=== PATIENT | male | born 1965 | race Asian ===

== ENCOUNTER 2016-06-05 20:03 | Emergency (ER) | payer OTHER ==
[~2016-06-05] VITALS: Ht 167.6 cm; Wt 70.9 kg
[~2016-06-05 20:03] MED LIST: ASPI81 PO; LORA-703 PO; LORA1TAB3 PO; PRAV20TA PO; SITA100 PO
[2016-06-05] MEDS ORDERED: SUCR1TAB PO (20:30)
[2016-06-05 20:36] LABS: GLUCOSE,POINT OF CARE 132 MG/DL (70-110)
[2016-06-05 20:48] LABS: BASOPHILS # (AUTO) 0.13 K/uL (0.00-0.20); BASOPHILS % (AUTO) 1.3 % (0.0-2.0); EOSINOPHILS # (AUTO) 0.18 K/uL (0.00-0.70); EOSINOPHILS % (AUTO) 1.83 % (1.0-6.0); HEMATOCRIT 48.4 % (41-53); HEMOGLOBIN 16.2 g/dL (13.5-17.5); LYMPHOCYTES # (AUTO) 2.1 K/uL (1.0-4.8); LYMPHOCYTES % (AUTO) 21.4 % (22.0-44.0); MEAN CORPUSCULAR HEMOGLOBIN 27.1 pg (26.0-34.0); MEAN CORPUSCULAR HGB CONC 33.4 G/dL (31.0-37.0); MEAN CORPUSCULAR VOLUME 81 fL (80-100); MONOCYTES # (AUTO) 0.7 K/uL (0.1-1.0); MONOCYTES % (AUTO) 6.6 % (2.0-9.0); NEUTROPHILS # (AUTO) 6.8 K/uL (1.8-7.7); PLATELET COUNT (AUTO) 192 K/uL (150-450); RED BLOOD CELL COUNT(AUTO) 5.97 MIL/uL (4.50-5.90); WHITE BLOOD COUNT (AUTO) 9.9 K/uL (4.5-11.0)
[2016-06-05 20:56] LABS: ANION GAP 9 mmol/L (8-16); CALCIUM, TOTAL 9.4 mg/dL (8.8-10.5); CARBON DIOXIDE 29 mmol/L (22-29); CHLORIDE 102 mmol/L (98-107); CREATININE 1.26 mg/dL (0.60-1.30); GLOMERULAR FILTR. RATE CALC > 60 mL/min (>60); POTASSIUM 4.1 mmol/L (3.5-5.1); SODIUM SERUM 140 mmol/L (136-145); UREA NITROGEN, BLOOD 15 mg/dL (7-18)
[2016-06-05 21:03] LABS: ALANINE AMINOTRANSFERASE 62 U/L (12-78); ALBUMIN 4.4 g/dL (3.4-5.0); ASPARTATE AMINOTRANSFERASE 35 U/L (15-37); BILIRUBIN,TOTAL 0.5 mg/dL (0.1-1.0); TOTAL PROTEIN, SERUM 8.4 g/dL (6.4-8.2)
[2016-06-05 21:30] LABS: ADD UA MICROSCOPIC NO; APPEARANCE,URINE CLEAR (CLEAR); GLUCOSE, URINE (UA) NEGATIVE (NEGATIVE); KETONES,URINE NEGATIVE (NEGATIVE); LEUKOCYTE ESTERASE ,URINE NEGATIVE (NEGATIVE); OCCULT BLOOD,URINE NEGATIVE (NEGATIVE); PROTEIN,URINE NEGATIVE (NEGATIVE)
[2016-06-06] MEDS ORDERED: SODIUM CHLORIDE 0.9% 1,000 ML IV ONE (00:15)
[2016-06-06] MEDS ORDERED: ONDANSETRON HCL 4 MG/2 ML VIAL IVP ONE (00:15)
[2016-06-06 00:51] VITALS: BP 138/87
[2016-06-06] MEDS ORDERED: DONNATAL/LIDOCAINE/MAALOX 55 ML BOTTLE PO ONE (01:00)
== END 2016-06-06 01:51 | disposition home or self-care (01) ==
LOC: EMS 20:06
DX: R10.84 Generalized abdominal pain (principal); E11.9 Type 2 diabetes mellitus without complications; I10 Essential (primary) hypertension; K21.9 Gastro-esophageal reflux disease without esophagitis; F17.210 Nicotine dependence, cigarettes, uncomplicated; Z88.8 Allergy status to other drugs, medicaments and biological substances; Z79.82 Long term (current) use of aspirin
CPT/HCPCS: 36415; 80053; 81003; 82962; 83690; 84484; 85025; 93005; 96361; 96374; 99285; J2405; J7030; Z7610

== ENCOUNTER 2016-07-10 16:01 | Emergency (ER) | payer OTHER ==
[~2016-07-10] VITALS: Ht 167.6 cm; Wt 73.6 kg
[~2016-07-10 16:01] MED LIST changes: -LORA-703 PO; +LORA10TA47 PO; +SUCR1TAB PO
[2016-07-10 17:17] LABS: GLUCOSE,POINT OF CARE 141 MG/DL (70-110)
[2016-07-10] MEDS ORDERED: KETOROLAC TROMETHAMINE 60 MG/2 ML VIAL IM ONE (19:30)
[2016-07-10] MEDS ORDERED: METHOCARBAMOL 500 MG TABLET PO ONE (19:30)
[2016-07-10 23:30] VITALS: BP 126/85
[2016-07-10] MEDS ORDERED: TraMADol HCL 50 MG TABLET PO ONE (23:30)
== END 2016-07-10 23:47 | disposition home or self-care (01) ==
LOC: EMS 17:16
DX: S13.4XXA Sprain of ligaments of cervical spine, initial encounter (principal); S00.83XA Contusion of other part of head, initial encounter; E11.9 Type 2 diabetes mellitus without complications; K21.9 Gastro-esophageal reflux disease without esophagitis; I10 Essential (primary) hypertension; F17.210 Nicotine dependence, cigarettes, uncomplicated; Z88.8 Allergy status to other drugs, medicaments and biological substances; V79.50XA Passenger on bus injured in collision with unspecified motor vehicles in traffic accident, initial encounter; Y93.89 Activity, other specified; Y92.89 Other specified places as the place of occurrence of the external cause; Y99.8 Other external cause status
CPT/HCPCS: 70486; 72125; 82962; 96372; 99284; J1885

== ENCOUNTER 2016-09-28 14:06 | Emergency (ER) | payer OTHER ==
[~2016-09-28] VITALS: Ht 165.1 cm; Wt 68.1 kg
[~2016-09-28 14:06] MED LIST changes: +LORA-703 PO; -LORA10TA47 PO
[2016-09-28] MEDS ORDERED: [UNRECOGNIZED DRUG - CODE] PO (14:13)
[2016-09-28 15:27] LABS: BASOPHILS % (AUTO) 1.4 % (0.0-2.0); EOSINOPHILS % (AUTO) 3.6 % (1.0-6.0); HEMATOCRIT 47.2 % (41-53); LYMPHOCYTES # (AUTO) 2.1 K/uL (1.0-4.8); LYMPHOCYTES % (AUTO) 22.7 % (22.0-44.0); MEAN CORPUSCULAR HEMOGLOBIN 27.5 pg (26.0-34.0); MEAN CORPUSCULAR HGB CONC 33.9 G/dL (31.0-37.0); MEAN CORPUSCULAR VOLUME 81 fL (80-100); MONOCYTES # (AUTO) 0.7 K/uL (0.1-1.0); MONOCYTES % (AUTO) 7.8 % (2.0-9.0); NEUTROPHILS # (AUTO) 5.8 K/uL (1.8-7.7); NEUTROPHILS % (AUTO) 64.5 % (40.0-70.0); PLATELET COUNT (AUTO) 178 K/uL (150-450); RED BLOOD CELL COUNT(AUTO) 5.82 MIL/uL (4.50-5.90); RED CELL DISTRIBUTION WIDTH 14.2 % (11.5-14.5)
[2016-09-28 15:39] LABS: CALCIUM, TOTAL 8.5 mg/dL (8.8-10.5); CREATININE 1.62 mg/dL (0.60-1.30); POTASSIUM 4.3 mmol/L (3.5-5.1)
[2016-09-28 16:03] VITALS: BP 134/93
== END 2016-09-28 16:24 | disposition home or self-care (01) ==
LOC: EMS 14:07
DX: R42 Dizziness and giddiness (principal); R06.02 Shortness of breath; E11.9 Type 2 diabetes mellitus without complications; K21.9 Gastro-esophageal reflux disease without esophagitis; I10 Essential (primary) hypertension; F17.210 Nicotine dependence, cigarettes, uncomplicated; Z79.82 Long term (current) use of aspirin; Z88.6 Allergy status to analgesic agent; Z88.8 Allergy status to other drugs, medicaments and biological substances
CPT/HCPCS: 82962; 93005; 99285

== ENCOUNTER 2016-12-31 10:08 | Emergency (ER) | payer OTHER ==
[~2016-12-31] VITALS: Ht 165.1 cm; Wt 74.1 kg
[~2016-12-31 10:08] MED LIST changes: +[UNRECOGNIZED DRUG - CODE] PO
[2016-12-31 10:42] LABS: GLUCOSE,POINT OF CARE 117 MG/DL (70-110)
[2016-12-31 11:14] LABS: BASOPHILS % (AUTO) 0.6 % (0.0-2.0); EOSINOPHILS % (AUTO) 2.6 % (1.0-6.0); HEMATOCRIT 48.3 % (41-53); HEMOGLOBIN 16.4 g/dL (13.5-17.5); LYMPHOCYTES # (AUTO) 1.7 K/uL (1.0-4.8); LYMPHOCYTES % (AUTO) 19.7 % (22.0-44.0); MEAN CORPUSCULAR HEMOGLOBIN 27.8 pg (26.0-34.0); MEAN CORPUSCULAR VOLUME 82 fL (80-100); MONOCYTES # (AUTO) 0.6 K/uL (0.1-1.0); MONOCYTES % (AUTO) 6.8 % (2.0-9.0); NEUTROPHILS # (AUTO) 5.9 K/uL (1.8-7.7); NEUTROPHILS % (AUTO) 70.3 % (40.0-70.0); PLATELET COUNT (AUTO) 150 K/uL (150-450); RED BLOOD CELL COUNT(AUTO) 5.91 MIL/uL (4.50-5.90); WHITE BLOOD COUNT (AUTO) 8.5 K/uL (4.5-11.0)
[2016-12-31 11:29] LABS: CREATININE 1.47 mg/dL (0.60-1.30); POTASSIUM 4.3 mmol/L (3.5-5.1)
[2016-12-31] MEDS ORDERED: SODIUM CHLORIDE 0.9% 1,000 ML IV ONE (11:30)
[2016-12-31] MEDS ORDERED: ONDANSETRON HCL 4 MG/2 ML VIAL IVP ONE (11:30)
[2016-12-31 11:35] LABS: ALBUMIN 4.1 g/dL (3.4-5.0); BILIRUBIN,TOTAL 0.4 mg/dL (0.1-1.0); TOTAL PROTEIN, SERUM 8.2 g/dL (6.4-8.2)
[2016-12-31 12:03] VITALS: BP 115/76
== END 2016-12-31 12:40 | disposition home or self-care (01) ==
LOC: EMS 10:09
DX: R19.7 Diarrhea, unspecified (principal); R11.2 Nausea with vomiting, unspecified; I10 Essential (primary) hypertension; K21.9 Gastro-esophageal reflux disease without esophagitis; E11.9 Type 2 diabetes mellitus without complications; F17.210 Nicotine dependence, cigarettes, uncomplicated; Z79.82 Long term (current) use of aspirin
CPT/HCPCS: 80053; 82962; 83690; 85025; 96361; 96374; 99284; J2405; J7030

== ENCOUNTER 2017-01-24 12:03 | Emergency (ER) | payer OTHER ==
[~2017-01-24] VITALS: Ht 167.6 cm; Wt 73.6 kg
[~2017-01-24 12:03] MED LIST changes: -[UNRECOGNIZED DRUG - CODE] PO
[2017-01-24 12:38] VITALS: BP 140/101
[2017-01-24 12:50] LABS: GLUCOSE,POINT OF CARE 156 MG/DL (70-110)
== END 2017-01-24 13:18 | disposition home or self-care (01) ==
LOC: EMS 12:05
DX: J06.9 Acute upper respiratory infection, unspecified (principal); E11.9 Type 2 diabetes mellitus without complications; I10 Essential (primary) hypertension; K21.9 Gastro-esophageal reflux disease without esophagitis; Z88.6 Allergy status to analgesic agent; Z88.8 Allergy status to other drugs, medicaments and biological substances; Z79.82 Long term (current) use of aspirin
CPT/HCPCS: 82962; 99283

== ENCOUNTER 2017-10-22 12:05 | Emergency (ER) | payer OTHER ==
[~2017-10-22] VITALS: Ht 167.6 cm; Wt 75.0 kg
[2017-10-22 12:19] LABS: GLUCOSE,POINT OF CARE 144 MG/DL (70-110)
[2017-10-22] MEDS ORDERED: HydrOXYzine PAMOATE 25 MG CAPSULE PO ONE (13:00)
[2017-10-22 13:30] VITALS: BP 141/84
== END 2017-10-22 13:47 | disposition home or self-care (01) ==
LOC: EMS 12:05
DX: T78.40XA Allergy, unspecified, initial encounter (principal); I10 Essential (primary) hypertension; E11.9 Type 2 diabetes mellitus without complications; K21.9 Gastro-esophageal reflux disease without esophagitis; Z88.6 Allergy status to analgesic agent; Z88.8 Allergy status to other drugs, medicaments and biological substances
CPT/HCPCS: 99283

== ENCOUNTER 2017-11-12 09:08 | Emergency (ER) | payer OTHER ==
[~2017-11-12] VITALS: Ht 165.1 cm; Wt 78.2 kg
[2017-11-12 09:37] VITALS: BP 111/68
[2017-11-12] MEDS ORDERED: IBUPROFEN 600 MG TABLET PO ONE (10:15)
[2017-11-12 14:55] LABS: GLUCOSE,POINT OF CARE 187 MG/DL (70-110)
== END 2017-11-12 10:27 | disposition home or self-care (01) ==
LOC: EMS 09:08
DX: S16.1XXA Strain of muscle, fascia and tendon at neck level, initial encounter (principal); S39.012A Strain of muscle, fascia and tendon of lower back, initial encounter; I10 Essential (primary) hypertension; E11.9 Type 2 diabetes mellitus without complications; K21.9 Gastro-esophageal reflux disease without esophagitis; F41.9 Anxiety disorder, unspecified; Z88.6 Allergy status to analgesic agent; Z88.8 Allergy status to other drugs, medicaments and biological substances; Z79.82 Long term (current) use of aspirin; Z79.899 Other long term (current) drug therapy; V49.50XA Passenger injured in collision with unspecified motor vehicles in traffic accident, initial encounter; Y93.89 Activity, other specified; Y92.89 Other specified places as the place of occurrence of the external cause; Y99.8 Other external cause status
CPT/HCPCS: 99283

== ENCOUNTER 2018-03-14 11:40 | Emergency (ER) | payer OTHER ==
[~2018-03-14] VITALS: Ht 167.6 cm; Wt 73.6 kg
[2018-03-14] MEDS ORDERED: HydrOXYzine HCL 25 MG TABLET PO ONE (12:45)
[2018-03-14] MEDS ORDERED: PredniSONE 20 MG TABLET PO ONE (13:15)
[2018-03-14 13:35] VITALS: BP 120/86
== END 2018-03-14 13:44 | disposition home or self-care (01) ==
LOC: EMS 11:42
DX: S80.861A Insect bite (nonvenomous), right lower leg, initial encounter (principal); S80.862A Insect bite (nonvenomous), left lower leg, initial encounter; S40.861A Insect bite (nonvenomous) of right upper arm, initial encounter; S40.862A Insect bite (nonvenomous) of left upper arm, initial encounter; L50.0 Allergic urticaria; E11.9 Type 2 diabetes mellitus without complications; K21.9 Gastro-esophageal reflux disease without esophagitis; I10 Essential (primary) hypertension; F41.9 Anxiety disorder, unspecified; Z88.6 Allergy status to analgesic agent; Z88.8 Allergy status to other drugs, medicaments and biological substances; Z79.82 Long term (current) use of aspirin; W57.XXXA Bitten or stung by nonvenomous insect and other nonvenomous arthropods, initial encounter; Y93.89 Activity, other specified; Y92.89 Other specified places as the place of occurrence of the external cause; Y99.8 Other external cause status
CPT/HCPCS: 82962; 99283; J7512

== ENCOUNTER 2018-07-11 08:07 | Emergency (ER) | payer OTHER ==
[~2018-07-11] VITALS: Ht 165.1 cm; Wt 74.1 kg
[2018-07-11 08:24] LABS: GLUCOSE,POINT OF CARE 266 MG/DL (70-110)
[2018-07-11] MEDS: DIPHENOXYLATE/ATROP 2.5-0.025 MG/5 ML ORAL.SYG LIQUID PO ONE ×2 (09:09→09:12)
[2018-07-11 09:14] LABS: BASOPHILS % (AUTO) 0.9 % (0.0-2.0); EOSINOPHILS % (AUTO) 2.7 % (1.0-6.0); HEMATOCRIT 44.6 % (41-53); HEMOGLOBIN 14.8 g/dL (13.5-17.5); LYMPHOCYTES # (AUTO) 1.2 K/uL (1.0-4.8); LYMPHOCYTES % (AUTO) 15.7 % (22.0-44.0); MEAN CORPUSCULAR HGB CONC 33.3 G/dL (31.0-37.0); MEAN CORPUSCULAR VOLUME 81 fL (80-100); MONOCYTES # (AUTO) 0.5 K/uL (0.1-1.0); NEUTROPHILS # (AUTO) 5.4 K/uL (1.8-7.7); NEUTROPHILS % (AUTO) 73.7 % (40.0-70.0); PLATELET COUNT (AUTO) 162 K/uL (150-450); RED BLOOD CELL COUNT(AUTO) 5.49 MIL/uL (4.50-5.90); RED CELL DISTRIBUTION WIDTH 14.5 % (11.5-14.5)
[2018-07-11 09:28] LABS: APPEARANCE,URINE CLEAR (CLEAR); BILIRUBIN,URINE NEGATIVE (NEGATIVE); GLUCOSE, URINE (UA) 500 mg/dL (NEGATIVE); KETONES,URINE NEGATIVE (NEGATIVE); LEUKOCYTE ESTERASE ,URINE NEGATIVE (NEGATIVE); NITRATE,URINE NEGATIVE (NEGATIVE); OCCULT BLOOD,URINE NEGATIVE (NEGATIVE); PROTEIN,URINE NEGATIVE (NEGATIVE); UROBILINOGEN,URINE 0.2 mg/dL (<=1.0)
[2018-07-11 09:32] LABS: CALCIUM, TOTAL 8.8 mg/dL (8.8-10.5); CREATININE 1.37 mg/dL (0.60-1.30); POTASSIUM 3.7 mmol/L (3.5-5.1)
[2018-07-11 09:45] LABS: ALBUMIN 3.4 g/dL (3.4-5.0); BILIRUBIN,TOTAL 0.5 mg/dL (0.1-1.0); TOTAL PROTEIN, SERUM 6.9 g/dL (6.4-8.2)
[2018-07-11 10:05] LABS: BACTERIA,URINE Rare /HPF (None Seen); RBC,URINE None Seen /HPF (0-2); SQUAMOUS EPITHELIAL CELL,UR Rare /LPF (None Seen); WBC,URINE 0-2 /HPF (0-5)
[2018-07-11 12:47] VITALS: BP 120/72
== END 2018-07-11 12:54 | disposition home or self-care (01) ==
LOC: EMS 08:09
DX: R19.7 Diarrhea, unspecified (principal); K21.9 Gastro-esophageal reflux disease without esophagitis; E11.9 Type 2 diabetes mellitus without complications; I10 Essential (primary) hypertension; F41.9 Anxiety disorder, unspecified; Z88.8 Allergy status to other drugs, medicaments and biological substances; Z88.6 Allergy status to analgesic agent; Z79.82 Long term (current) use of aspirin

== ENCOUNTER 2018-10-28 18:45 | Emergency (ER) | payer OTHER ==
[~2018-10-28] VITALS: Ht 165.1 cm; Wt 74.0 kg
[2018-10-28 18:48] VITALS: BP 141/94
[2018-10-28 19:04] LABS: GLUCOSE,POINT OF CARE 157 MG/DL (70-110)
[2018-10-28 19:33] LABS: APPEARANCE,URINE CLEAR (CLEAR); BILIRUBIN,URINE NEGATIVE (NEGATIVE); GLUCOSE, URINE (UA) NEGATIVE (NEGATIVE); KETONES,URINE NEGATIVE (NEGATIVE); LEUKOCYTE ESTERASE ,URINE NEGATIVE (NEGATIVE); NITRATE,URINE NEGATIVE (NEGATIVE); OCCULT BLOOD,URINE NEGATIVE (NEGATIVE); PROTEIN,URINE NEGATIVE (NEGATIVE); UROBILINOGEN,URINE 0.2 mg/dL (<=1.0)
== END 2018-10-28 21:30 | disposition left against medical advice (07) ==
LOC: EMS 18:46
DX: R42 Dizziness and giddiness (principal); R53.1 Weakness; E11.9 Type 2 diabetes mellitus without complications; K21.9 Gastro-esophageal reflux disease without esophagitis; I10 Essential (primary) hypertension; F41.9 Anxiety disorder, unspecified; Z53.21 Procedure and treatment not carried out due to patient leaving prior to being seen by health care provider

== ENCOUNTER 2019-04-25 12:56 | Emergency (ER) | payer OTHER ==
[~2019-04-25] VITALS: Ht 167.6 cm; Wt 75.0 kg
[~2019-04-25 12:56] MED LIST changes: +LORA-1000 PO; -LORA1TAB3 PO
[2019-04-25 15:21] LABS: GLUCOSE,POINT OF CARE 121 MG/DL (70-110)
[2019-04-25 16:48] LABS: BASOPHILS % (AUTO) 1.4 % (0.0-2.0); EOSINOPHILS % (AUTO) 1.6 % (1.0-6.0); HEMATOCRIT 47.5 % (41-53); HEMOGLOBIN 15.9 g/dL (13.5-17.5); LYMPHOCYTES # (AUTO) 1.6 K/uL (1.0-4.8); LYMPHOCYTES % (AUTO) 17.2 % (22.0-44.0); MEAN CORPUSCULAR HEMOGLOBIN 27.9 pg (26.0-34.0); MEAN CORPUSCULAR HGB CONC 33.5 G/dL (31.0-37.0); MEAN CORPUSCULAR VOLUME 83 fL (80-100); MONOCYTES # (AUTO) 0.8 K/uL (0.1-1.0); MONOCYTES % (AUTO) 8.2 % (2.0-9.0); NEUTROPHILS # (AUTO) 6.6 K/uL (1.8-7.7); NEUTROPHILS % (AUTO) 71.6 % (40.0-70.0); PLATELET COUNT (AUTO) 212 K/uL (150-450); RED BLOOD CELL COUNT(AUTO) 5.71 MIL/uL (4.50-5.90); RED CELL DISTRIBUTION WIDTH 14.4 % (11.5-14.5)
[2019-04-25 16:59] LABS: CALCIUM, TOTAL 8.4 mg/dL (8.8-10.5); CREATININE 1.34 mg/dL (0.60-1.30); POTASSIUM 3.7 mmol/L (3.5-5.1)
[2019-04-25 17:14] LABS: ALBUMIN 3.7 g/dL (3.4-5.0); BILIRUBIN,TOTAL 0.5 mg/dL (0.1-1.0); FREE T4 (FREE THYROXINE) 1.09 ng/dL (0.76-1.46); THYROID STIMULATING HORMONE 1.48 uIU/mL (0.36-3.74); TOTAL PROTEIN, SERUM 7.4 g/dL (6.4-8.2)
[2019-04-25 19:30] VITALS: BP 128/82
== END 2019-04-25 20:15 | disposition home or self-care (01) ==
LOC: EMS 12:58
DX: R00.2 Palpitations (principal); F41.9 Anxiety disorder, unspecified; R20.2 Paresthesia of skin; I12.9 Hypertensive chronic kidney disease with stage 1 through stage 4 chronic kidney disease, or unspecified chronic kidney disease; E11.22 Type 2 diabetes mellitus with diabetic chronic kidney disease; N18.9 Chronic kidney disease, unspecified; K21.9 Gastro-esophageal reflux disease without esophagitis; Z79.82 Long term (current) use of aspirin; Z88.6 Allergy status to analgesic agent; Z88.8 Allergy status to other drugs, medicaments and biological substances
CPT/HCPCS: 84439; 84443; 93005

== ENCOUNTER 2019-06-03 16:43 | Emergency (ER) | payer OTHER ==
[~2019-06-03] VITALS: Ht 165.1 cm; Wt 75.9 kg
[~2019-06-03 16:43] MED LIST changes: +ASPI-728 PO; -ASPI81 PO
[2019-06-03] MEDS ORDERED: SUCRALFATE 1 GM/10 ML SUSPENSION UDCUP PO ONE (17:00)
[2019-06-03] MEDS ORDERED: PB/HYOSCY/ATR/SCOP/LIDO/MAALOX 55 ML BOTTLE PO ONE (17:00)
[2019-06-03 17:46] LABS: GLUCOSE,POINT OF CARE 181 MG/DL (70-110)
[2019-06-03 17:58] VITALS: BP 107/68
== END 2019-06-03 18:43 | disposition home or self-care (01) ==
LOC: EMS 16:46
DX: K21.9 Gastro-esophageal reflux disease without esophagitis (principal); F41.9 Anxiety disorder, unspecified; E11.9 Type 2 diabetes mellitus without complications; I10 Essential (primary) hypertension; Z79.899 Other long term (current) drug therapy; Z88.6 Allergy status to analgesic agent; Z88.8 Allergy status to other drugs, medicaments and biological substances
CPT/HCPCS: 93005

== ENCOUNTER 2019-06-18 07:54 | Emergency (ER) | payer OTHER ==
[~2019-06-18] VITALS: Ht 165.1 cm; Wt 76.4 kg
[2019-06-18 08:16] LABS: GLUCOSE,POINT OF CARE 206 MG/DL (70-110)
[2019-06-18] MEDS ORDERED: ONDANSETRON HCL 4 MG/2 ML VIAL IVP ONE (08:45)
[2019-06-18] MEDS ORDERED: FAMOTIDINE 10 MG/ML 2 ML VIAL IVP ONE (08:45)
[2019-06-18] MEDS ORDERED: SODIUM CHLORIDE 0.9% 1,000 ML IV ONE (08:45)
[2019-06-18] MEDS ORDERED: MAG HYDROX/AL HYDROX/SIMETH 30 ML SUSP UDCUP PO ONE (08:45)
[2019-06-18 09:04] LABS: BASOPHILS % (AUTO) 0.6 % (0.0-2.0); HEMATOCRIT 47.1 % (41-53); HEMOGLOBIN 15.5 g/dL (13.5-17.5); LYMPHOCYTES # (AUTO) 1.6 K/uL (1.0-4.8); LYMPHOCYTES % (AUTO) 19.8 % (22.0-44.0); MEAN CORPUSCULAR HEMOGLOBIN 27.6 pg (26.0-34.0); MEAN CORPUSCULAR HGB CONC 32.8 G/dL (31.0-37.0); MEAN CORPUSCULAR VOLUME 84 fL (80-100); MONOCYTES # (AUTO) 0.7 K/uL (0.1-1.0); MONOCYTES % (AUTO) 8.5 % (2.0-9.0); NEUTROPHILS # (AUTO) 5.2 K/uL (1.8-7.7); NEUTROPHILS % (AUTO) 66.1 % (40.0-70.0); PLATELET COUNT (AUTO) 165 K/uL (150-450); RED CELL DISTRIBUTION WIDTH 14.4 % (11.5-14.5)
[2019-06-18 09:14] LABS: CALCIUM, TOTAL 8.7 mg/dL (8.8-10.5); CREATININE 1.31 mg/dL (0.60-1.30); POTASSIUM 3.5 mmol/L (3.5-5.1)
[2019-06-18 09:21] LABS: ALBUMIN 3.7 g/dL (3.4-5.0); BILIRUBIN,TOTAL 0.7 mg/dL (0.1-1.0); TOTAL PROTEIN, SERUM 7.4 g/dL (6.4-8.2)
[2019-06-18] MEDS ORDERED: IOVERSOL 350 MG/ML 100 ML VIAL ONE (09:34)
[2019-06-18] MEDS ORDERED: SODIUM CHLORIDE 0.9% 100 ML ONE (09:34)
[2019-06-18 10:20] LABS: APPEARANCE,URINE CLEAR (CLEAR); BILIRUBIN,URINE NEGATIVE (NEGATIVE); GLUCOSE, URINE (UA) NEGATIVE (NEGATIVE); KETONES,URINE NEGATIVE (NEGATIVE); LEUKOCYTE ESTERASE ,URINE NEGATIVE (NEGATIVE); NITRATE,URINE NEGATIVE (NEGATIVE); OCCULT BLOOD,URINE NEGATIVE (NEGATIVE); PROTEIN,URINE NEGATIVE (NEGATIVE); UROBILINOGEN,URINE 0.2 mg/dL (<=1.0)
[2019-06-18 10:23] VITALS: BP 110/81
== END 2019-06-18 10:46 | disposition home or self-care (01) ==
LOC: EMS 07:58
DX: R19.7 Diarrhea, unspecified (principal); R10.84 Generalized abdominal pain; E11.9 Type 2 diabetes mellitus without complications; K21.9 Gastro-esophageal reflux disease without esophagitis; I10 Essential (primary) hypertension; F41.9 Anxiety disorder, unspecified; Z79.82 Long term (current) use of aspirin; Z88.6 Allergy status to analgesic agent; Z88.8 Allergy status to other drugs, medicaments and biological substances
CPT/HCPCS: 36415; 74177; 80053; 81003; 82962; 83690; 85025; 96361; 96374; 96375; 99285; J2405; J3490; J7030; J7050; Q9967

== ENCOUNTER 2019-07-09 09:24 | Emergency (ER) | payer OTHER ==
[~2019-07-09] VITALS: Ht 165.1 cm; Wt 76.4 kg
[2019-07-09 12:00] VITALS: BP 135/92
[2019-07-09 12:01] LABS: INFLUENZA TYPE A NEGATIVE FOR TYPE A (NEGATIVE); INFLUENZA TYPE B NEGATIVE FOR TYPE B (NEGATIVE)
== END 2019-07-09 12:20 | disposition home or self-care (01) ==
LOC: EMS 09:25
DX: B34.9 Viral infection, unspecified (principal); F41.9 Anxiety disorder, unspecified; E11.9 Type 2 diabetes mellitus without complications; K21.9 Gastro-esophageal reflux disease without esophagitis; I10 Essential (primary) hypertension; Z88.6 Allergy status to analgesic agent; Z88.8 Allergy status to other drugs, medicaments and biological substances; Z79.82 Long term (current) use of aspirin
CPT/HCPCS: 87804

== ENCOUNTER 2020-06-13 08:13 | Emergency (ER) | payer OTHER ==
[~2020-06-13] VITALS: Ht 162.6 cm; Wt 81.8 kg
[~2020-06-13 08:13] MED LIST changes: +ASPI-1450 PO; -ASPI-728 PO; +LORA-550 PO; -LORA-703 PO
[2020-06-13 08:18] VITALS: BP 117/73
[2020-06-13] MEDS ORDERED: IBUPROFEN 600 MG TABLET PO ONE (08:45)
== END 2020-06-13 08:48 | disposition home or self-care (01) ==
LOC: EMS 08:20
DX: M77.11 Lateral epicondylitis, right elbow (principal); F41.9 Anxiety disorder, unspecified; E11.9 Type 2 diabetes mellitus without complications; K21.9 Gastro-esophageal reflux disease without esophagitis; I10 Essential (primary) hypertension; Z88.6 Allergy status to analgesic agent; Z88.8 Allergy status to other drugs, medicaments and biological substances
CPT/HCPCS: 99282; Z7502; Z7610

== ENCOUNTER 2020-12-11 07:07 | Emergency (ER) | payer OTHER ==
[~2020-12-11] VITALS: Ht 167.6 cm; Wt 77.3 kg
[2020-12-11] MEDS ORDERED: DUPI200S IM (07:12)
[2020-12-11 07:15] VITALS: BP 147/91
[2020-12-11] MEDS ORDERED: CefTRIAXone SODIUM 2 GM in DEXTROSE 5%-WATER 50 ML IV ONE (08:00)
[2020-12-11 08:30] LABS: BASOPHILS % (AUTO) 0.9 % (0.0-2.0); EOSINOPHILS % (AUTO) 12.4 % (1.0-6.0); HEMATOCRIT 42.8 % (41-53); HEMOGLOBIN 14.3 g/dL (13.5-17.5); LYMPHOCYTES # (AUTO) 1.5 K/uL (1.0-4.8); LYMPHOCYTES % (AUTO) 19.8 % (22.0-44.0); MEAN CORPUSCULAR HEMOGLOBIN 27.9 pg (26.0-34.0); MEAN CORPUSCULAR HGB CONC 33.3 G/dL (31.0-37.0); MEAN CORPUSCULAR VOLUME 84 fL (80-100); MONOCYTES # (AUTO) 0.7 K/uL (0.1-1.0); MONOCYTES % (AUTO) 8.8 % (2.0-9.0); NEUTROPHILS # (AUTO) 4.5 K/uL (1.8-7.7); NEUTROPHILS % (AUTO) 58.1 % (40.0-70.0); PLATELET COUNT (AUTO) 146 K/uL (150-450); RED BLOOD CELL COUNT(AUTO) 5.11 MIL/uL (4.50-5.90); RED CELL DISTRIBUTION WIDTH 13.7 % (11.5-14.5)
[2020-12-11 08:39] LABS: ANION GAP 8 mmol/L (8-16); CALCIUM, TOTAL 8.2 mg/dL (8.8-10.5); CARBON DIOXIDE 25 mmol/L (22-29); CHLORIDE 106 mmol/L (98-107); CREATININE 1.15 mg/dL (0.60-1.30); GLOMERULAR FILTR. RATE CALC > 60 mL/min (>60); GLUCOSE,RANDOM 152 mg/dL (70-110); POTASSIUM 3.5 mmol/L (3.5-5.1); SODIUM SERUM 139 mmol/L (136-145); UREA NITROGEN, BLOOD 17 mg/dL (7-18)
[2020-12-11 08:45] LABS: ALANINE AMINOTRANSFERASE 83 U/L (12-78); ALBUMIN 3.3 g/dL (3.4-5.0); ALKALINE PHOSPHATASE 93 U/L (46-116); ASPARTATE AMINOTRANSFERASE 49 U/L (15-37); BILIRUBIN,TOTAL 0.5 mg/dL (0.1-1.0)
[2020-12-11 08:48] LABS: LACTIC ACID 1.1 mmol/L (0.4-2.0)
[2020-12-11] MEDS ORDERED: DOXYCYCLINE HYCLATE 100 MG TABLET PO ONE (09:30)
== END 2020-12-11 09:49 | disposition home or self-care (01) ==
LOC: EMS 07:07
DX: L03.116 Cellulitis of left lower limb (principal); E11.9 Type 2 diabetes mellitus without complications; F41.9 Anxiety disorder, unspecified; K21.9 Gastro-esophageal reflux disease without esophagitis; I10 Essential (primary) hypertension; Z83.3 Family history of diabetes mellitus; Z88.6 Allergy status to analgesic agent; Z88.8 Allergy status to other drugs, medicaments and biological substances
CPT/HCPCS: 36415; 80053; 82962; 83605; 85025; 87040; 96365; 99284; J0696; J7060

== ENCOUNTER 2021-03-22 14:56 | Emergency (ER) | payer OTHER ==
[~2021-03-22] VITALS: Ht 167.6 cm; Wt 79.1 kg
[~2021-03-22 14:56] MED LIST changes: +DUPI200S IM
[2021-03-22 15:56] LABS: BASOPHILS % (AUTO) 0.2 % (0.0-2.0); EOSINOPHILS % (AUTO) 5.4 % (1.0-6.0); HEMATOCRIT 46.3 % (41-53); HEMOGLOBIN 15.9 g/dL (13.5-17.5); LYMPHOCYTES # (AUTO) 1.7 K/uL (1.0-4.8); LYMPHOCYTES % (AUTO) 18.2 % (22.0-44.0); MEAN CORPUSCULAR HEMOGLOBIN 28.1 pg (26.0-34.0); MEAN CORPUSCULAR HGB CONC 34.4 G/dL (31.0-37.0); MEAN CORPUSCULAR VOLUME 82 fL (80-100); MONOCYTES # (AUTO) 0.8 K/uL (0.1-1.0); MONOCYTES % (AUTO) 8.3 % (2.0-9.0); NEUTROPHILS # (AUTO) 6.5 K/uL (1.8-7.7); NEUTROPHILS % (AUTO) 67.9 % (40.0-70.0); PLATELET COUNT (AUTO) 179 K/uL (150-450); RED BLOOD CELL COUNT(AUTO) 5.67 MIL/uL (4.50-5.90); RED CELL DISTRIBUTION WIDTH 14.1 % (11.5-14.5)
[2021-03-22 16:06] LABS: CALCIUM, TOTAL 9.5 mg/dL (8.8-10.5); CREATININE 1.28 mg/dL (0.60-1.30); POTASSIUM 4.3 mmol/L (3.5-5.1)
[2021-03-22 16:12] LABS: ALBUMIN 3.9 g/dL (3.4-5.0); BILIRUBIN,TOTAL 0.3 mg/dL (0.1-1.0); TOTAL PROTEIN, SERUM 8.1 g/dL (6.4-8.2)
[2021-03-22 16:40] VITALS: BP 126/85
[2021-03-22] MEDS ORDERED: ONDANSETRON HCL 4 MG TABLET PO ONE (16:45)
== END 2021-03-22 18:01 | disposition home or self-care (01) ==
LOC: EMS 15:00
DX: I10 Essential (primary) hypertension (principal); I95.9 Hypotension, unspecified; E11.9 Type 2 diabetes mellitus without complications; F41.9 Anxiety disorder, unspecified; Z88.6 Allergy status to analgesic agent; Z88.8 Allergy status to other drugs, medicaments and biological substances
CPT/HCPCS: 36415; 80053; 84484; 85025; 93005; 99284; Q0162

== ENCOUNTER 2021-04-10 10:19 | Emergency (ER) | payer OTHER ==
[~2021-04-10] VITALS: Ht 170.2 cm; Wt 80.0 kg
[2021-04-10 10:23] VITALS: BP 136/86
[2021-04-10 10:35] LABS: GLUCOSE,POINT OF CARE 268 MG/DL (70-110)
== END 2021-04-10 12:00 | disposition left against medical advice (07) ==
LOC: EMS 10:19
DX: R42 Dizziness and giddiness (principal); Z53.21 Procedure and treatment not carried out due to patient leaving prior to being seen by health care provider
CPT/HCPCS: 82962; 93005

== ENCOUNTER 2021-04-14 03:28 | Emergency (ER) | payer OTHER ==
[~2021-04-14] VITALS: Ht 167.6 cm; Wt 78.6 kg
[2021-04-14] MEDS ORDERED: BUSP5TAB20 PO (04:11)
[2021-04-14 07:43] LABS: EOSINOPHILS % (AUTO) 4.4 % (1.0-6.0); HEMATOCRIT 44.9 % (41-53); HEMOGLOBIN 15.1 g/dL (13.5-17.5); LYMPHOCYTES # (AUTO) 2.1 K/uL (1.0-4.8); LYMPHOCYTES % (AUTO) 22.6 % (22.0-44.0); MEAN CORPUSCULAR HEMOGLOBIN 27.6 pg (26.0-34.0); MEAN CORPUSCULAR HGB CONC 33.7 G/dL (31.0-37.0); MEAN CORPUSCULAR VOLUME 82 fL (80-100); MONOCYTES # (AUTO) 0.8 K/uL (0.1-1.0); MONOCYTES % (AUTO) 8.8 % (2.0-9.0); NEUTROPHILS # (AUTO) 5.8 K/uL (1.8-7.7); NEUTROPHILS % (AUTO) 63.2 % (40.0-70.0); PLATELET COUNT (AUTO) 215 K/uL (150-450); RED BLOOD CELL COUNT(AUTO) 5.48 MIL/uL (4.50-5.90); RED CELL DISTRIBUTION WIDTH 13.9 % (11.5-14.5)
[2021-04-14] MEDS: LORazepam 1 MG TABLET PO ONE ×2 (07:47→07:50)
[2021-04-14 07:53] LABS: CALCIUM, TOTAL 9.3 mg/dL (8.8-10.5); CREATININE 1.42 mg/dL (0.60-1.30); POTASSIUM 4.7 mmol/L (3.5-5.1)
[2021-04-14 07:59] LABS: ALBUMIN 3.9 g/dL (3.4-5.0); BILIRUBIN,TOTAL 0.5 mg/dL (0.1-1.0); TOTAL PROTEIN, SERUM 7.8 g/dL (6.4-8.2)
[2021-04-14 08:56] LABS: COVID AG,FIA SOURCE NASOPHARYNGEAL
[2021-04-14 10:20] VITALS: BP 106/73
== END 2021-04-14 10:22 | disposition home or self-care (01) ==
LOC: EMS 03:29
DX: F41.9 Anxiety disorder, unspecified (principal); E11.65 Type 2 diabetes mellitus with hyperglycemia; I10 Essential (primary) hypertension; Z88.8 Allergy status to other drugs, medicaments and biological substances; Z79.899 Other long term (current) drug therapy; Z20.822 Contact with and (suspected) exposure to COVID-19
CPT/HCPCS: 36415; 80053; 85025; 87426; 93005; 99284; U0003

== ENCOUNTER 2021-07-17 07:35 | Emergency (ER) | payer OTHER ==
[~2021-07-17] VITALS: Ht 167.6 cm; Wt 78.2 kg
[~2021-07-17 07:35] MED LIST changes: +BUSP5TAB20 PO
[2021-07-17] MEDS ORDERED: KETOROLAC TROMETHAMINE 60 MG/2 ML VIAL IM ONE (09:15)
[2021-07-17 11:55] VITALS: BP 127/70
== END 2021-07-17 11:57 | disposition home or self-care (01) ==
LOC: EMS 07:35
DX: S20.211A Contusion of right front wall of thorax, initial encounter (principal); I10 Essential (primary) hypertension; E11.9 Type 2 diabetes mellitus without complications; F41.9 Anxiety disorder, unspecified; Z88.8 Allergy status to other drugs, medicaments and biological substances; Z79.899 Other long term (current) drug therapy; V03.00XA Pedestrian on foot injured in collision with car, pick-up truck or van in nontraffic accident, initial encounter; Y93.89 Activity, other specified; Y92.89 Other specified places as the place of occurrence of the external cause; Y99.8 Other external cause status
CPT/HCPCS: 73030; 96372; 99283; J1885

== ENCOUNTER 2022-12-02 16:04 | Emergency (ER) | payer OTHER ==
[~2022-12-02] VITALS: Ht 170.2 cm; Wt 65.9 kg
[~2022-12-02 16:04] MED LIST changes: +LORA-1370 PO; -LORA-550 PO
[2022-12-02] MEDS ORDERED: ATOR20TA PO (16:08)
[2022-12-02] MEDS ORDERED: SITA1TBM PO (16:08)
[2022-12-02] MEDS ORDERED: [UNRECOGNIZED DRUG - OTHER] SQ (16:08)
[2022-12-02] MEDS ORDERED: TraMADol HCL 50 MG TABLET PO ONE (17:00)
[2022-12-02] MEDS ORDERED: PredniSONE 20 MG TABLET PO ONE (17:15)
[2022-12-02] MEDS ORDERED: HYDR30CR3 TP (17:24)
[2022-12-02] MEDS ORDERED: CEPH-558 PO (17:24)
[2022-12-02 17:37] VITALS: BP 109/77; PULSE 86; RESP 18; TEMP 98.9
== END 2022-12-02 17:39 | disposition home or self-care (01) ==
LOC: EMS 16:07
DX: S20.469A Insect bite (nonvenomous) of unspecified back wall of thorax, initial encounter (principal); F41.9 Anxiety disorder, unspecified; E11.9 Type 2 diabetes mellitus without complications; I10 Essential (primary) hypertension; Z88.8 Allergy status to other drugs, medicaments and biological substances; W57.XXXA Bitten or stung by nonvenomous insect and other nonvenomous arthropods, initial encounter; Y93.89 Activity, other specified; Y92.89 Other specified places as the place of occurrence of the external cause; Y99.8 Other external cause status
CPT/HCPCS: 99283; 82962; J7512

== ENCOUNTER 2023-05-04 10:23 | Emergency (ER) | payer OTHER ==
[~2023-05-04] VITALS: Ht 167.6 cm; Wt 72.7 kg
[~2023-05-04 10:23] MED LIST changes: +ATOR20TA PO; +CEPH-558 PO; +HYDR30CR3 TP; -LORA-1000 PO; -PRAV20TA PO; -SITA100 PO; +SITA1TBM PO
[2023-05-04 10:30] VITALS: BP 126/76; PULSE 80; RESP 16; TEMP 98.1
[2023-05-04 11:31] LABS: BASOPHILS % (AUTO) 1.4 % (0.0-2.0); EOSINOPHILS % (AUTO) 1.7 % (1.0-6.0); HEMATOCRIT 44.7 % (41-53); HEMOGLOBIN 14.9 g/dL (13.5-17.5); LYMPHOCYTES # (AUTO) 1.4 K/uL (1.0-4.8); LYMPHOCYTES % (AUTO) 17.4 % (22.0-44.0); MEAN CORPUSCULAR HEMOGLOBIN 27.7 pg (26.0-34.0); MEAN CORPUSCULAR HGB CONC 33.2 G/dL (31.0-37.0); MEAN CORPUSCULAR VOLUME 83 fL (80-100); MONOCYTES # (AUTO) 0.6 K/uL (0.1-1.0); MONOCYTES % (AUTO) 7.9 % (2.0-9.0); NEUTROPHILS # (AUTO) 5.8 K/uL (1.8-7.7); NEUTROPHILS % (AUTO) 71.6 % (40.0-70.0); PLATELET COUNT (AUTO) 188 K/uL (150-450); RED BLOOD CELL COUNT(AUTO) 5.36 MIL/uL (4.50-5.90); RED CELL DISTRIBUTION WIDTH 14.3 % (11.5-14.5); WHITE BLOOD COUNT (AUTO) 8.2 K/uL (4.5-11.0)
[2023-05-04 11:39] LABS: ANION GAP 8 mmol/L (8-16); CALCIUM, TOTAL 9.2 mg/dL (8.8-10.5); CARBON DIOXIDE 28 mmol/L (22-29); CHLORIDE 103 mmol/L (98-107); CREATININE 1.06 mg/dL (0.60-1.30); GLOMERULAR FILTR. RATE CALC > 60 mL/min (>60); GLUCOSE,RANDOM 128 mg/dL (70-110); POTASSIUM 4.5 mmol/L (3.5-5.1); SODIUM SERUM 139 mmol/L (136-145); UREA NITROGEN, BLOOD 19 mg/dL (7-18)
[2023-05-04 11:44] LABS: ALANINE AMINOTRANSFERASE 51 U/L (12-78); ALBUMIN 3.9 g/dL (3.4-5.0); ALKALINE PHOSPHATASE 94 U/L (46-116); ASPARTATE AMINOTRANSFERASE 26 U/L (15-37); BILIRUBIN,TOTAL 0.6 mg/dL (0.1-1.0); TOTAL PROTEIN, SERUM 7.4 g/dL (6.4-8.2)
[2023-05-04] MEDS ORDERED: FAMO20 PO (12:30)
== END 2023-05-04 12:48 | disposition home or self-care (01) ==
LOC: EMS 10:23
DX: K62.5 Hemorrhage of anus and rectum (principal); F41.9 Anxiety disorder, unspecified; E11.9 Type 2 diabetes mellitus without complications; I10 Essential (primary) hypertension; Z98.890 Other specified postprocedural states; Z88.8 Allergy status to other drugs, medicaments and biological substances
CPT/HCPCS: 71045; 80053; 82962; 85025; 99284; 36415-L1; 36415-TC

== ENCOUNTER 2023-07-11 06:56 | Emergency (ER) | payer OTHER ==
[~2023-07-11] VITALS: Ht 170.2 cm; Wt 75.0 kg
[~2023-07-11 06:56] MED LIST changes: -CEPH-558 PO; +FAMO20 PO
[2023-07-11 07:14] VITALS: TEMP 98.5
[2023-07-11] MEDS: ONDANSETRON HCL 4 MG TABLET PO ONE (07:51)
[2023-07-11] MEDS: MECLIZINE HCL 25 MG TABLET PO ONE (07:51)
[2023-07-11] MEDS: ACETAMINOPHEN 500 MG TABLET PO ONE (07:52)
[2023-07-11 08:14] LABS: BASOPHILS % (AUTO) 1.2 % (0.0-2.0); HEMATOCRIT 44.3 % (41-53); LYMPHOCYTES # (AUTO) 1.8 K/uL (1.0-4.8); MEAN CORPUSCULAR HEMOGLOBIN 28.1 pg (26.0-34.0); MEAN CORPUSCULAR HGB CONC 33.8 G/dL (31.0-37.0); MEAN CORPUSCULAR VOLUME 83 fL (80-100); MONOCYTES # (AUTO) 0.7 K/uL (0.1-1.0); MONOCYTES % (AUTO) 8.1 % (2.0-9.0); NEUTROPHILS # (AUTO) 5.4 K/uL (1.8-7.7); NEUTROPHILS % (AUTO) 64.7 % (40.0-70.0); PLATELET COUNT (AUTO) 170 K/uL (150-450); RED BLOOD CELL COUNT(AUTO) 5.32 MIL/uL (4.50-5.90); RED CELL DISTRIBUTION WIDTH 13.9 % (11.5-14.5); WHITE BLOOD COUNT (AUTO) 8.3 K/uL (4.5-11.0)
[2023-07-11 08:23] LABS: ANION GAP 9 mmol/L (8-16); CALCIUM, TOTAL 8.8 mg/dL (8.8-10.5); CARBON DIOXIDE 28 mmol/L (22-29); CHLORIDE 101 mmol/L (98-107); CREATININE 1.23 mg/dL (0.60-1.30); GLOMERULAR FILTR. RATE CALC > 60 mL/min (>60); GLUCOSE,RANDOM 173 mg/dL (70-110); SODIUM SERUM 138 mmol/L (136-145); UREA NITROGEN, BLOOD 20 mg/dL (7-18)
[2023-07-11 08:29] LABS: ALANINE AMINOTRANSFERASE 19 U/L (12-78); ALBUMIN 3.6 g/dL (3.4-5.0); ALKALINE PHOSPHATASE 98 U/L (46-116); ASPARTATE AMINOTRANSFERASE 21 U/L (15-37); BILIRUBIN,TOTAL 0.5 mg/dL (0.1-1.0); TOTAL PROTEIN, SERUM 7.5 g/dL (6.4-8.2)
[2023-07-11 08:31] LABS: TROPONIN I-HIGH SENSITIVITY 4 ng/L (<76)
[2023-07-11] MEDS ORDERED: ONDA-104 PO (08:39)
[2023-07-11] MEDS ORDERED: MECL-134 PO (08:39)
[2023-07-11] MEDS ORDERED: ACET-66 PO (08:39)
[2023-07-11 08:41] VITALS: BP 106/41; PULSE 73; RESP 18
== END 2023-07-11 09:01 | disposition home or self-care (01) ==
LOC: EMS 06:58
DX: E11.65 Type 2 diabetes mellitus with hyperglycemia (principal); R42 Dizziness and giddiness; F41.9 Anxiety disorder, unspecified; E11.9 Type 2 diabetes mellitus without complications; I10 Essential (primary) hypertension; Z88.8 Allergy status to other drugs, medicaments and biological substances; Z87.2 Personal history of diseases of the skin and subcutaneous tissue
CPT/HCPCS: 99285; 80053; 82962; 84484; 85025; 36415; 93005; Q0162

== ENCOUNTER 2024-02-10 11:16 | Emergency (ER) | payer OTHER ==
[~2024-02-10] VITALS: Ht 170.2 cm; Wt 72.7 kg
[~2024-02-10 11:16] MED LIST changes: +ACET-66 PO; -DUPI200S IM; +DUPI200S SQ; +MECL-134 PO; +ONDA-104 PO; -SUCR1TAB PO; +SUCR1TAB2 PO
[2024-02-10 11:30] VITALS: BP 118/74; PULSE 98; RESP 18; TEMP 99; O2SAT 99
[2024-02-10 11:31] LABS: COVID AG,FIA SOURCE NASAL SWAB
[2024-02-10 11:59] LABS: SARS-COV2 (COVID) ANTIGEN,FIA Negative (Negative)
[2024-02-10 12:00] LABS: INFLUENZA TYPE A NEGATIVE FOR TYPE A (NEGATIVE); INFLUENZA TYPE B NEGATIVE FOR TYPE B (NEGATIVE)
[2024-02-10] MEDS ORDERED: ONDA-104 PO (12:15)
[2024-02-10] MEDS ORDERED: ACET-3385 PO (12:15)
[2024-02-10] MEDS: ACETAMINOPHEN 500 MG TABLET PO ONE (12:19)
== END 2024-02-10 12:23 | disposition home or self-care (01) ==
LOC: EMS 11:16
DX: B34.9 Viral infection, unspecified (principal); F41.9 Anxiety disorder, unspecified; E11.9 Type 2 diabetes mellitus without complications; I10 Essential (primary) hypertension; Z98.890 Other specified postprocedural states; Z79.82 Long term (current) use of aspirin; Z79.84 Long term (current) use of oral hypoglycemic drugs; Z88.8 Allergy status to other drugs, medicaments and biological substances; Z20.822 Contact with and (suspected) exposure to COVID-19
CPT/HCPCS: 87804; 99283

== ENCOUNTER 2024-03-12 10:35 | Emergency (ER) | payer OTHER ==
[~2024-03-12] VITALS: Ht 167.6 cm; Wt 74.5 kg
[~2024-03-12 10:35] MED LIST changes: +ACET-3385 PO; -ACET-66 PO
[2024-03-12 10:41] VITALS: BP 126/73; PULSE 80; RESP 18; TEMP 97.9; O2SAT 99
[2024-03-12] MEDS ORDERED: DOXY-354 PO (11:35)
[2024-03-12] MEDS ORDERED: DIPH30C TP (11:35)
== END 2024-03-12 11:53 | disposition home or self-care (01) ==
LOC: EMS 10:36
DX: S60.562A Insect bite (nonvenomous) of left hand, initial encounter (principal); F41.9 Anxiety disorder, unspecified; E11.9 Type 2 diabetes mellitus without complications; I10 Essential (primary) hypertension; Z79.82 Long term (current) use of aspirin; Z79.84 Long term (current) use of oral hypoglycemic drugs; W57.XXXA Bitten or stung by nonvenomous insect and other nonvenomous arthropods, initial encounter; Y93.89 Activity, other specified; Y92.89 Other specified places as the place of occurrence of the external cause; Y99.8 Other external cause status
CPT/HCPCS: 99283; Z7502

== ENCOUNTER 2024-04-22 15:07 | Emergency (ER) | payer OTHER ==
[~2024-04-22] VITALS: Ht 170.2 cm; Wt 80.9 kg
[~2024-04-22 15:07] MED LIST changes: -ACET-3385 PO; +DIPH30C TP; +DOXY-354 PO; -HYDR30CR3 TP; -MECL-134 PO
[2024-04-22 15:11] VITALS: BP 139/77; PULSE 100; RESP 18; TEMP 98.1; O2SAT 99
[2024-04-22] MEDS: SODIUM CHLORIDE 0.9% 1,000 ML IV ONE (16:08)
[2024-04-22] MEDS: ONDANSETRON HCL 4 MG/2 ML VIAL IVP ONE (16:08)
[2024-04-22] MEDS: ACETAMINOPHEN 500 MG TABLET PO ONE (16:08)
[2024-04-22] MEDS: FAMOTIDINE 20 MG/2 ML VIAL IVP ONE (16:08)
[2024-04-22] MEDS: MAG HYDROX/ALUMINUM HYD/SIMETH 30 ML SUSPENSION UDCUP PO ONE (16:08)
[2024-04-22 16:28] LABS: BASOPHILS % (AUTO) 0.9 % (0.0-2.0); EOSINOPHILS % (AUTO) 5.2 % (1.0-6.0); HEMATOCRIT 44.2 % (41-53); HEMOGLOBIN 14.4 g/dL (13.5-17.5); LYMPHOCYTES # (AUTO) 1.6 K/uL (1.0-4.8); LYMPHOCYTES % (AUTO) 17.3 % (22.0-44.0); MEAN CORPUSCULAR HEMOGLOBIN 26.9 pg (26.0-34.0); MEAN CORPUSCULAR HGB CONC 32.5 G/dL (31.0-37.0); MEAN CORPUSCULAR VOLUME 83 fL (80-100); MONOCYTES # (AUTO) 0.8 K/uL (0.1-1.0); MONOCYTES % (AUTO) 8.3 % (2.0-9.0); NEUTROPHILS # (AUTO) 6.4 K/uL (1.8-7.7); NEUTROPHILS % (AUTO) 68.3 % (40.0-70.0); PLATELET COUNT (AUTO) 211 K/uL (150-450); RED BLOOD CELL COUNT(AUTO) 5.33 MIL/uL (4.50-5.90); RED CELL DISTRIBUTION WIDTH 14.4 % (11.5-14.5); WHITE BLOOD COUNT (AUTO) 9.3 K/uL (4.5-11.0)
[2024-04-22 16:39] LABS: CALCIUM, TOTAL 8.9 mg/dL (8.8-10.5); CREATININE 1.25 mg/dL (0.60-1.30)
[2024-04-22 16:44] LABS: ALBUMIN 3.6 g/dL (3.4-5.0); BILIRUBIN,DIRECT 0.1 mg/dL (0.00-0.20); BILIRUBIN,TOTAL 0.4 mg/dL (0.1-1.0); MAGNESIUM 2.1 mg/dL (1.80-2.40); TOTAL PROTEIN, SERUM 7.5 g/dL (6.4-8.2)
== END 2024-04-22 17:31 | disposition home or self-care (01) ==
LOC: EMS 15:07
DX: R19.7 Diarrhea, unspecified (principal); R11.0 Nausea; E11.9 Type 2 diabetes mellitus without complications; I10 Essential (primary) hypertension; F41.9 Anxiety disorder, unspecified; Z88.8 Allergy status to other drugs, medicaments and biological substances; Z79.82 Long term (current) use of aspirin; Z79.84 Long term (current) use of oral hypoglycemic drugs; Z79.899 Other long term (current) drug therapy
CPT/HCPCS: 99284; 96374; 96361; 96375; 80048; 80076; 83690; 83735; 85025; 36415; 82962; J3490; J2405; J7030

== ENCOUNTER 2024-06-09 15:07 | Emergency (ER) | payer OTHER ==
[~2024-06-09] VITALS: Ht 167.6 cm; Wt 79.1 kg
[2024-06-09 15:10] VITALS: TEMP 98.4
[2024-06-09] MEDS ORDERED: BUSP7.5T7 PO (15:14)
[2024-06-09] MEDS ORDERED: LISI-892 PO (15:14)
[2024-06-09 15:27] LABS: COVID AG,FIA SOURCE NASAL SWAB
[2024-06-09 15:55] LABS: INFLUENZA TYPE A NEGATIVE FOR TYPE A (NEGATIVE); INFLUENZA TYPE B NEGATIVE FOR TYPE B (NEGATIVE); SARS-COV2 (COVID) ANTIGEN,FIA Negative (Negative)
[2024-06-09] MEDS: ONDANSETRON HCL 4 MG/2 ML VIAL IVP ONE (16:29)
[2024-06-09] MEDS: SODIUM CHLORIDE 0.9% 1,000 ML IV ONE (16:29)
[2024-06-09 16:47] LABS: BASOPHILS % (AUTO) 0.3 % (0.0-2.0); EOSINOPHILS % (AUTO) 0.5 % (1.0-6.0); HEMATOCRIT 48.7 % (41-53); HEMOGLOBIN 16.2 g/dL (13.5-17.5); LYMPHOCYTES # (AUTO) 1.4 K/uL (1.0-4.8); LYMPHOCYTES % (AUTO) 11.6 % (22.0-44.0); MEAN CORPUSCULAR HEMOGLOBIN 27.8 pg (26.0-34.0); MEAN CORPUSCULAR HGB CONC 33.2 G/dL (31.0-37.0); MEAN CORPUSCULAR VOLUME 84 fL (80-100); MONOCYTES # (AUTO) 0.9 K/uL (0.1-1.0); MONOCYTES % (AUTO) 7.5 % (2.0-9.0); NEUTROPHILS # (AUTO) 9.6 K/uL (1.8-7.7); NEUTROPHILS % (AUTO) 80.1 % (40.0-70.0); PLATELET COUNT (AUTO) 157 K/uL (150-450); RED BLOOD CELL COUNT(AUTO) 5.81 MIL/uL (4.50-5.90); RED CELL DISTRIBUTION WIDTH 15.3 % (11.5-14.5)
[2024-06-09 16:56] LABS: CALCIUM, TOTAL 8.6 mg/dL (8.8-10.5); CREATININE 1.28 mg/dL (0.60-1.30); POTASSIUM 3.6 mmol/L (3.5-5.1)
[2024-06-09 17:01] LABS: ALBUMIN 3.8 g/dL (3.4-5.0); BILIRUBIN,DIRECT 0.2 mg/dL (0.00-0.20); BILIRUBIN,TOTAL 0.6 mg/dL (0.1-1.0); TOTAL PROTEIN, SERUM 8.3 g/dL (6.4-8.2)
[2024-06-09 17:46] LABS: APPEARANCE,URINE CLEAR (CLEAR); BILIRUBIN,URINE NEGATIVE (NEGATIVE); COLOR,URINE LIGHT YELLOW (YELLOW); GLUCOSE, URINE (UA) >=1000 mg/dL (NEGATIVE); KETONES,URINE TRACE mg/dL (NEGATIVE); LEUKOCYTE ESTERASE ,URINE NEGATIVE (NEGATIVE); NITRATE,URINE NEGATIVE (NEGATIVE); OCCULT BLOOD,URINE NEGATIVE (NEGATIVE); PH,URINE 5.5 (5.0-8.0); PROTEIN,URINE TRACE mg/dL (NEGATIVE); SPECIFIC GRAVITIY, URINE 1.038 (1.003-1.030); UROBILINOGEN,URINE <=1.0 mg/dL (<=1.0)
[2024-06-09 17:55] LABS: BACTERIA,URINE None Seen /HPF (None Seen); RBC,URINE 0-2 /HPF (0-2); SQUAMOUS EPITHELIAL CELL,UR Few /LPF (None Seen); WBC,URINE 0-2 /HPF (0-5)
[2024-06-09] MEDS ORDERED: ONDA-104 PO (19:28)
[2024-06-09 19:48] VITALS: BP 131/74; PULSE 85; RESP 16; O2SAT 99
== END 2024-06-09 20:16 | disposition home or self-care (01) ==
LOC: EMS 15:07
DX: R19.7 Diarrhea, unspecified (principal); R11.2 Nausea with vomiting, unspecified; F41.9 Anxiety disorder, unspecified; E11.9 Type 2 diabetes mellitus without complications; I10 Essential (primary) hypertension; Z79.82 Long term (current) use of aspirin; Z79.899 Other long term (current) drug therapy; Z20.822 Contact with and (suspected) exposure to COVID-19
CPT/HCPCS: 99283; 96374; 96361; 87426; 80048; 80076; 81001; 82962; 83690; 85025; 87804; 36415; J2405; J7030

== ENCOUNTER 2024-10-23 11:26 | Emergency (ER) | payer OTHER ==
[~2024-10-23] VITALS: Ht 170.2 cm; Wt 79.5 kg
[~2024-10-23 11:26] MED LIST changes: -BUSP5TAB20 PO; +BUSP7.5T7 PO; -DIPH30C TP; -DOXY-354 PO; -FAMO20 PO; +LISI-892 PO; -SITA1TBM PO
[2024-10-23 12:00] LABS: PLATELET COUNT (AUTO) 177 K/uL (150-450); RED BLOOD CELL COUNT(AUTO) 5.52 MIL/uL (4.50-5.90); RED CELL DISTRIBUTION WIDTH 15.0 % (11.5-14.5); WHITE BLOOD COUNT (AUTO) 8.2 K/uL (4.5-11.0)
[2024-10-23 12:07] LABS: CALCIUM, TOTAL 9.3 mg/dL (8.8-10.5); CREATININE 1.6 mg/dL (0.60-1.30); GLOMERULAR FILTR. RATE CALC 45.0 mL/min (>60); GLUCOSE,RANDOM 193.0 mg/dL (70-110); SODIUM SERUM 141.0 mmol/L (136-145); UREA NITROGEN, BLOOD 15.0 mg/dL (7-18)
[2024-10-23 12:13] LABS: ASPARTATE AMINOTRANSFERASE 20.0 U/L (15-37); TOTAL PROTEIN, SERUM 7.5 g/dL (6.4-8.2)
[2024-10-23] MEDS ORDERED: EPIN0.3P3 IM (12:28)
[2024-10-23] MEDS ORDERED: PRED-554 PO (12:28)
[2024-10-23 13:08] VITALS: BP 128/80; PULSE 80; RESP 16; TEMP 98.4; O2SAT 99
== END 2024-10-23 13:12 | disposition home or self-care (01) ==
LOC: EMS 11:26
DX: L50.0 Allergic urticaria (principal); F41.9 Anxiety disorder, unspecified; E11.9 Type 2 diabetes mellitus without complications; I10 Essential (primary) hypertension; Z79.899 Other long term (current) drug therapy; Z79.82 Long term (current) use of aspirin; Z88.8 Allergy status to other drugs, medicaments and biological substances
CPT/HCPCS: 99283; 80048; 80076; 83690; 85025; 36415; J7512

== ENCOUNTER 2024-11-24 17:29 | Emergency (ER) | payer OTHER ==
[~2024-11-24] VITALS: Ht 167.6 cm; Wt 7.9 kg
[~2024-11-24 17:29] MED LIST changes: +EPIN0.3P3 IM; -LORA-1370 PO; -ONDA-104 PO; +PRED-554 PO
[2024-11-24 17:34] VITALS: BP 140/89; PULSE 121; RESP 18; TEMP 98.4; O2SAT 100
[2024-11-24 17:55] LABS: GLUCOMETER DEV NAME(LOC) ER.7; GLUCOSE,POINT OF CARE 219 MG/DL (70-110)
[2024-11-24 18:19] LABS: COVID AG,FIA SOURCE NASAL SWAB
[2024-11-24 18:43] LABS: INFLUENZA TYPE A NEGATIVE FOR TYPE A (NEGATIVE); INFLUENZA TYPE B NEGATIVE FOR TYPE B (NEGATIVE); SARS-COV2 (COVID) ANTIGEN,FIA Negative (Negative)
[2024-11-24] MEDS ORDERED: ACET-66 PO (19:27)
[2024-11-24] MEDS ORDERED: GUAIFDM PO (19:27)
== END 2024-11-24 20:05 | disposition home or self-care (01) ==
LOC: EMS 17:29
DX: K52.9 Noninfective gastroenteritis and colitis, unspecified (principal); J06.9 Acute upper respiratory infection, unspecified; E11.65 Type 2 diabetes mellitus with hyperglycemia; I10 Essential (primary) hypertension; F41.9 Anxiety disorder, unspecified; Z88.8 Allergy status to other drugs, medicaments and biological substances; Z79.52 Long term (current) use of systemic steroids; Z79.82 Long term (current) use of aspirin; Z79.899 Other long term (current) drug therapy; Z20.822 Contact with and (suspected) exposure to COVID-19
CPT/HCPCS: 82962; 87804; 99283

== ENCOUNTER 2025-02-11 08:40 | Emergency (ER) | payer OTHER ==
[~2025-02-11] VITALS: Ht 167.6 cm; Wt 79.1 kg
[~2025-02-11 08:40] MED LIST changes: +ACET-66 PO; +GUAIFDM PO
[2025-02-11 08:43] VITALS: TEMP 98.5
[2025-02-11] MEDS ORDERED: SITA1TAB2 PO (08:46)
[2025-02-11 10:00] VITALS: BP 128/88; PULSE 75; RESP 15; O2SAT 100
[2025-02-11] MEDS ORDERED: DIPH50CA39 PO (10:17)
[2025-02-11] MEDS ORDERED: PRED-554 PO (10:17)
== END 2025-02-11 11:10 | disposition home or self-care (01) ==
LOC: EMS 08:42
DX: S20.36 Insect bite (nonvenomous) of front wall of thorax (principal); E11.9 Type 2 diabetes mellitus without complications; F41.9 Anxiety disorder, unspecified; I10 Essential (primary) hypertension; Z79.82 Long term (current) use of aspirin; Z79.899 Other long term (current) drug therapy; W57.XXXS Bitten or stung by nonvenomous insect and other nonvenomous arthropods, sequela; Y93.89 Activity, other specified; Y92.89 Other specified places as the place of occurrence of the external cause; Y99.8 Other external cause status
CPT/HCPCS: 99283; 82962; J7512